=== PATIENT | male | born 1985 | race Caucasian/White ===

== ENCOUNTER 2019-01-13 12:35 | Emergency (ER) | payer OTHER ==
[~2019-01-13] VITALS: Ht 172.7 cm; Wt 85.5 kg
[2019-01-13 12:39] VITALS: BP 132/80; PULSE 91; RESP 20; Ht 172.7 cm; Wt 85.5 kg
[2019-01-13] MEDS ORDERED: IBUP-1542 PO (12:58)
--- NOTE | 2019-01-13 13:02 | ERD ---
ER Documentation Chief Complaint Chief Complaint L heel and middle back pain x more than a year HPI 33-year-old male presents with multiple complaints. Does have pain in his left heel for the last year. He had an x-ray approximately 1 year ago which shows no abnormalities. He is also had some pain in his right upper back also the last year. He states it is worse with certain exercises. Is relieved with massage. He has had some changes in the skin color in the area of pain as well but it is not growing or changing over the last year. Denies other symptoms or history of trauma. ROS All systems reviewed and are negative except as per history of present illness. Medications Home Meds Active Scripts Ibuprofen* (Motrin*) 600 Mg Tab, 600 MG PO Q6, #30 TAB Prov:VALENCIA MOSQUEDA MD 01/13/19 FmHx Family History: No diabetes, No coronary disease, No other Physical Exam Vitals Vital Signs Date Temp Pulse Resp B/P (MAP) Pulse Ox O2 O2 Flow FiO2 Time Delivery Rate 01/13/19 97.5 91 20 132/80 100 12:39 (97) Physical Exam Const: No acute distress Head: Atraumatic Eyes: Normal Conjunctiva ENT: Normal External Ears, Nose and Mouth. Neck: Full range of motion. No meningismus. Resp: Clear to auscultation bilaterally Cardio: Regular rate and rhythm, no murmurs Abd: Soft, non tender, non distended. Normal bowel sounds Skin: No petechiae or rashes Back: No midline or flank tenderness Ext: No cyanosis, or edema. Tenderness and mild spasm in the right upper thoracic area rhomboids area. There is some hyperpigmentation in the overlying skin without masses, bony tenderness or deformities. There is tenderness in the left heel without erythema, bony deformities, restricted range of motion or weakness. Neur: Awake and alert Psych: Normal Mood and Affect Procedures/MDM Patient presents with multiple complaints. His upper back pain appears to be thoracic strain. He does have some skin changes which clinically appear to be postinflammatory hyperpigmentation, possibly from acne. I am recommending primary care follow-up in dermatology for enlarging or changing skin lesions which she states they have not. His pain appears to be plantar fasciitis. X-rays were offered but he declined given previous normal x-rays. He was given instructions on stretching and exercises. He was given instructions on arch support and possibly changing his shoes. He is advised to follow-up with primary doctor for referrals and further evaluation and treatment otherwise return for fevers, redness, new worsening symptoms. The patient was stable with no new complaints during the ER course. Clinically, there is no current evidence to suggest meningitis, sepsis, acute abdomen, pneumonia, stroke, acute coronary syndrome, pulmonary embolism, aortic dissection or any other emergent condition appearing to require further evaluation or hospitalization. Patient counseled regarding my diagnostic impression and care plan. Prior to discharge all questions answered. Pt agrees with treatment plan and understands strict return precautions. Pt is instructed to follow up with primary care provider within 24- 48 hours. Precautionary instructions provided including instructions to return to the ER if not improving or for any worsening or changing symptoms or concerns. Disclaimer: Inadvertent spelling and grammatical errors are likely due to EHR/dictation software use and do not reflect on the overall quality of patient care. Also, please note that the electronic time recorded on this note does not necessarily reflect the actual time of the patient encounter. Departure Diagnosis: Primary Impression: Plantar fasciitis Additional Impression: Strain of thoracic spine Condition: Stable Patient Instructions: Plantar Fasciitis, Thoracic Strain Referrals: [facility] YOU HAVE RECEIVED A MEDICAL SCREENING EXAM AND THE RESULTS INDICATE THAT YOU DO NOT HAVE A CONDITION THAT REQUIRES URGENT TREATMENT IN THE EMERGENCY DEPARTMENT. FURTHER EVALUATION AND TREATMENT OF YOUR CONDITION CAN WAIT UNTIL YOU ARE SEEN IN YOUR DOCTORS OFFICE WITHIN THE NEXT 1-2 DAYS. IT IS YOUR RESPONSIBILITY TO MAKE AN APPOINTMENT FOR FOLOW-UP CARE. IF YOU HAVE A PRIMARY DOCTOR --you should call your primary doctor and schedule an appointment IF YOU DO NOT HAVE A PRIMARY DOCTOR YOU CAN CALL OUR PHYSICIAN REFERRAL HOTLINE AT IF YOU CAN NOT AFFORD TO SEE A PHYSICIAN YOU CAN CHOSE FROM THE FOLLOWING [facility] [id number] [facility] [address] [facility] [address] [facility]. [facility] [address] [facility]. [facility] [address] [place] [address]. [facility] [address] Additional Instructions: Condition appears to be thoracic strain for back and plantar fasciitis for foot pain. Recommend stretching exercise for upper back pain. Recommend he see primary doctor and vehicle monitor technician for enlarging skin lesion or changes in skin lesion. Recommend trial of arch support and change of shoes for plantar fasciitis. See primary doctor for follow-up. Recheck otherwise for new worsening symptoms. VALENCIA MOSQUEDA MD Jan 13, 2019 13:02
== END 2019-01-13 14:39 | disposition home or self-care (01) ==
LOC: FTE 12:35
DX: S29.012A Strain of muscle and tendon of back wall of thorax, initial encounter (principal); M72.2 Plantar fascial fibromatosis; X58.XXXA Exposure to other specified factors, initial encounter; Y92.9 Unspecified place or not applicable
CPT/HCPCS: 99282